=== PATIENT | male | born 1995 | race Two or more races ===

== ENCOUNTER 2017-04-27 20:40 | Emergency (ER) | payer OTHER ==
--- NOTE | 2017-04-27 20:42 | ED Physician Chart ---
ED Chief Complaint/HPI - Patient Information Date Seen:: 04/27/17 Time Seen:: 20:40 Chief Complaint:: Seizure. History of Present Illness:: Pt h/o seizure disorder for about 3 years and has been followed with his neurologist Dr. Martinez. 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 Pt felt nauseated earlier and had a lapse of consciousness while he was in the parking lot. Pt could not remember what happened afterwards. No urinary or fecal incontinence. No tongue biting. Pt is now alert and oriented x 3. Pt has frontal IVORY since earlier this evening. No fever, N/V/D. No visual changes in terms of diplopia or blurry vision. No weakness, numbness or ataxia. Pt states that he has been compliant with his anticonvulsant. Pt denies illicit drug use or ethanol use. No other bodily pain or discomfort. Allergies:: NKA Vitals:: see Nurse Note. Historian:: Patient Family MD/PCP:: Dr. Braxton LMP:: N/A Review:: Nurse's Note Reviewed ED Review of Systems - Review of Systems General/Constitutional: No fever, No chills, No weight loss, No weakness, No edema, No loss of appetite Skin: No skin lesions, No rash, No bruising Head: Headache (?), No light-headedness Eyes: No loss of vision, No pain, No diplopia ENT: No earache, No nasal drainage, No sore throat, No tinnitus Neck: No neck pain, No swelling, No stiffness, No mass noted Cardio Vascular: No chest pain, No palpitations, No edema Pulmonary: No SOB, No cough, No wheezing GI: No nausea, No vomiting, No diarrhea, No pain G/U: No dysuria, No frequency, No hematuria Musculoskeletal: No bone or joint pain, No back pain, No muscle pain Endocrine: No polyuria, No polydipsia Psychiatric: No prior psych history Hematopoietic: No bruising, No lymphadenopathy Allergic/Immuno: No urticaria, No angioedema Neurological: No syncope, No focal symptoms, No weakness, No paresthesia, Headache (?), Seizure (?), No dizziness, No confusion, No vertigo ED Past Medical History - Past Medical History Past Medical History: Seizures Family History: None Social History: Non Smoker, No Alcohol, No Drug Use, Single, Lives With Parents , Other (lives with his parents.) Surgical History: None Psychiatricy History: None Medication: Reviewed Family Medical History - Family Member Mother Ethnicity: Hx Family Cancer: No Hx Family Coronary Artery Disease: No Hx Family Congestive Heart Failure: No Hx Family Hypertension: No Hx Family Stroke: No Hx Family Diabetes: No Hx Family Seizures: No Hx Family Dementia: No Hx Family AIDS: No Hx Family HIV: No Hx Family COPD: No Hx Family Hepatitis: No Hx Family Psychiatric Problems: No Hx Family Tuberculosis: No ED Physical Exam - Physical Examination General/Constitutional: Awake, Well-developed, well-nourished, Alert, No distress, GCS 15, Non-toxic appearing, Ambulatory Other Gen/Cons comments:: Breathes comfortably, speaks clearly, and interacts normally. Head: Atraumatic Eyes: Lids, conjuctiva normal, PERRL, EOMI Other Eyes comments:: Fundi: not well visualized. Skin: Nl inspection, No rash, No skin lesions, No ecchymosis, Well hydrated, No lymphadenopathy ENMT: External ears, nose nl, Nasal exam nl, Lips, teeth, gums nl, Oropharynx nl Neck: Nontender, Full ROM w/o pain, No nuchal rigidity, No mass, No stridor Respiratory: Nl effort/Exclusion, Clear to Auscultation, No Wheeze/Rhonchi/Rales Cardio Vascular: RRR, No murmur, gallop, rubs GI: No tenderness/rebounding/guarding, No organomegaly, Normal BS's, Nondistended, No mass/bruits Extremities: No edema Neuro/Psych: Alert/oriented (oriented x 3), DTR's symmetric, Normal sensory exam , Normal motor strength, Judgement/insight normal, Mood normal, Normal gait, No focal deficits Other Neuro/Psych comments:: CN II to XII are grossly intact. Cerebellar exam (F to N, YOVANY): normal. ED Labs/Radiology/EKG Results - Lab Results Results: Laboratory Tests 04/27/17 04/27/17 04/27/17 20:49 20:49 20:49 WBC 12.3 H RBC 5.50 Hgb 16.5 Hct 48.3 MCV 87.7 MCH 30.1 H MCHC Differential 34.3 RDW 11.0 L Plt Count 338 MPV 9.4 Neutrophils % 46.3 Lymphocytes % 43.1 Monocytes % 8.0 Eosinophils % 2.1 Basophils % 0.5 PT 9.8 INR 0.94 PTT (Actin FS) 22.6 L Sodium 137 Potassium 3.3 L Chloride 100 Carbon Dioxide 16.6 L Anion Gap 23.7 H BUN 12 Creatinine 1.1 Est GFR ( Amer) > 60.0 Est GFR (Non-Af Amer) > 60.0 BUN/Creatinine Ratio 10.9 Glucose 126 H Whole Bld Lactic Acid Calcium 9.9 Phosphorus 3.1 Magnesium 2.5 Total Bilirubin 0.4 AST 37 ALT 113 H Alkaline Phosphatase 84 Total Protein 8.4 H Albumin 5.2 Globulin 3.2 Albumin/Globulin Ratio 1.6 04/27/17 04/27/17 20:49 22:44 WBC RBC Hgb Hct MCV MCH MCHC Differential RDW Plt Count MPV Neutrophils % Lymphocytes % Monocytes % Eosinophils % Basophils % PT INR PTT (Actin FS) Sodium Potassium Chloride Carbon Dioxide Anion Gap BUN Creatinine Est GFR ( Amer) Est GFR (Non-Af Amer) BUN/Creatinine Ratio Glucose Whole Bld Lactic Acid 12.04 H* 1.87 Calcium Phosphorus Magnesium Total Bilirubin AST ALT Alkaline Phosphatase Total Protein Albumin Globulin Albumin/Globulin Ratio - Radiology Results Results: Head CT without contrast: NAD. Official report per Dr. Brigido Mendiola, radiologist. ED Septic Shock - . Is Septic Shock (SBP<90, OR Lactate>4 mmol\L) present?: No ED Reassessment (Disposition) - Reassessment Reassessment:: 2315 Pt has been repeatedly evaluated. Pt remains stable without recurrent seizure. Head CT and available lab results have been reviewed with pt. Remaining lab results are pending. Management plan has been discussed. 2345 Pt remained stable without recurrence of seizure activities. Headache has completely resolved. No N/V/D, weakness or numbness. Pt was recommended to be admitted for further evaluation/observation/management of his recurrence of seizure despite being on anticonvulsant. Pt was alert and oriented x 3. Pt decided to leave AMA and will seek further care elsewhere. Indications for further in hospital care, related benefits and risks, including risks for leaving AMA had been well explained. Pt acknowledged understanding but still chose to leave AMA. Pt signed AMA form, witnessed by my nurse Olga. Pt was instructed that he cannot operate any motor vehicles or engage in any potential hazardous activities (such as handling power tools, climbing a ladder, etc.) for his safety and that of others because of his recent seizure/lapse of consciousness. Pt reassured that he will not drive and will follow with his neurologist tomorrow. His father will drive him home and care for him. DMV Reporting Form regarding pt's lapse of consciousness has been completed and filed per my nurse Olga. Reassessment Condition:: Improved - Diagnosis Diagnosis:: Seizure disorder. Stable and currently asymptomatic. - Patient Disposition Discharge/Transfer:: Against Medical Advice Time:: 23:50 Condition at Disposition:: Stable, Improved ED Discharge Plan - Patient Disposition Admit/Discharge/Transfer: AGAINST MEDICAL ADVICE Condition at Disposition: Stable
[2017-04-27 20:56] LABS: % BASOPHILS 0.5 % (0.0-2.0); % EOSINOPHILS 2.1 % (0.0-5.0); % LYMPHOCYTES 43.1 % (20.0-50.0); % NEUTROPHILS 46.3 % (40.0-80.0); HEMATOCRIT 48.3 % (41.0-60); HEMOGLOBIN 16.5 gm/dL (12-16); MEAN CELL VOLUME 87.7 fl (80-99); MEAN CORPUSCULAR HEMOGLOBIN 30.1 pg (26.0-30.0); MEAN CORPUSCULAR HGB CONC 34.3 pg (28.0-36.0); MEAN PLATELET VOLUME 9.4 fl; NEUTROPHILE ABSOLUTE 5.6 Th/cmm (1.8-8.0); PLATELET COUNT 338 Th/cmm (150-400)
[2017-04-27 20:58] LABS: WHITE BLOOD COUNT 12.3 Th/cmm (4.8-10.8)
[2017-04-27 21:09] LABS: INR 0.94 (0.5-1.4); PROTHROMBIN TIME (TEST) 9.8 SECONDS (9.5-11.5)
[2017-04-27 21:14] LABS: ALB/GLOB RATIO 1.6 (1.0-1.8); ALKALINE PHOSPHATASE 84 U/L (34-104); ANION GAP 23.7 (7.0-16.0); BILIRUBIN,TOTAL 0.4 mg/dL (0.3-1.0); BUN - UREA NITROGEN 12 mg/dL (7-25); BUN/CREATININE RATIO 10.9; CALCIUM SERUM 9.9 mg/dL (8.6-10.3); CARBON DIOXIDE 16.6 mEq/L (21.0-31.0); CHLORIDE 100 mEq/L (98-107); CREATININE - SERUM 1.1 mg/dL (0.7-1.3); GLUCOSE 126 mg/dL (70-105); MAGNESIUM 2.5 mg/dL (1.9-2.7); PHOSPHOROUS 3.1 mg/dL (2.5-5.0); POTASSIUM SERUM 3.3 mEq/L (3.5-5.1); SGOT 37 U/L (13-39); SGPT/ALT 113 U/L (7-52); SODIUM SERUM 137 mEq/L (136-145)
[2017-04-28] MEDS: Potassium Chloride 20 mEq ER Tab PO ONE (00:24)
--- NOTE | 2017-04-28 08:07 | Diagnostic Imaging Report ---
CT scan of the brain without contrast History: Seizure Total DLP equals 588 CTDI equals 36.9 Axial sections were obtained from the base of the skull to the vertex. There is a normal ventricular system size. No focal parenchymal lesions are seen. No evidence of any mass effect or shift of midline structures. No extra-axial masses or abnormal fluid collections. Impression: Negative examination
== END 2017-04-28 00:04 | disposition left against medical advice (07) ==
LOC: EEVIPCON 20:40 → ER 20:40
DX: G40.909 Epilepsy, unspecified, not intractable, without status epilepticus (principal)
CPT/HCPCS: 36415-UA; 70450-TC; 80053-TC; 80299-90; 82948-90; 83605; 83735-TC; 84100-TC; 85025-TC; 85610-TC; Z7610